=== PATIENT | female | born 1960 | race Asian ===

== ENCOUNTER 2016-07-22 05:56 | Day surgery (SDC) | payer BC ==
[2016-07-21 09:00] VITALS: BMI 34.0
[2016-07-22] VITALS (12 sets, daily range): BP systolic 96–127; BP diastolic 54–81; PULSE 62–74; RESP 12–23; Ht 160 cm; Wt 86.1 kg
[~2016-07-22] VITALS: Ht 160 cm; Wt 86.1 kg
[~2016-07-22 05:56] MED LIST: TYLENOL PO
[2016-07-22] MEDS ORDERED: POLYMYXIN/BACITRACIN 1L IRRIG ONE ×2 (06:46→06:48)
[2016-07-22] MEDS ORDERED: BUPIVACAINE 0.5% (SDV) 30 ML INJ ONE (06:48)
[2016-07-22] MEDS ORDERED: CEFAZOLIN 2 GM/50 ML (PMX) 50 ML IVPB SCH (07:00)
[2016-07-22] MEDS ORDERED: LIDOCAINE 2% (SDV) 5 ML INJ ONE (07:26)
[2016-07-22] MEDS ORDERED: PROPOFOL 20 ML ONE (07:26)
[2016-07-22] MEDS ORDERED: MIDAZOLAM 1 MG/ML 2 ML INJ ONE (07:27)
--- NOTE | 2016-07-22 07:43 | HPN ---
Date/Time of Note Date/Time of Note DATE: 07/22/16 TIME: 07:42 Interval H&P Admission Note Pt. seen H&P reviewed: No system changes FRANCOISE MARINELLI DPM Jul 22, 2016 07:43
[2016-07-22] MEDS ORDERED: FENTAnyl 50 MCG/ML VIAL ONE (07:52)
[2016-07-22] MEDS ORDERED: ONDANSETRON 4 MG INJ ONE (07:53)
[2016-07-22] MEDS ORDERED: METOCLOPRAMIDE 10 MG INJ ONE (07:53)
[2016-07-22] MEDS ORDERED: DEXAMETHASONE 4 MG/ML 1 ML INJ ONE (07:55)
[2016-07-22] MEDS ORDERED: LIDOCAINE 2% (MDV) 20 ML INJ ONE (08:02)
[2016-07-22] MEDS ORDERED: CLINDAMYCIN 900 MG/D5W (PMX) 50 ML IVPB ONE (08:08)
[2016-07-22] MEDS ORDERED: EPHEDrine SULFATE 50 MG/5 ML SYG ONE (08:26)
[2016-07-22] MEDS ORDERED: MEPERIDINE 25 MG INJ IV PRN (08:30)
[2016-07-22] MEDS ORDERED: PROCHLORPERAZINE 10 MG INJ IV PRN (08:30)
[2016-07-22] MEDS ORDERED: DIPHENHYDRAMINE 50 MG INJ IV PRN (08:30)
[2016-07-22] MEDS ORDERED: HYDROmorphONE (0.2 MG/ML) 10ML SYG IV PRN (08:30)
[2016-07-22] MEDS ORDERED: ONDANSETRON 4 MG INJ IV PRN (08:30)
[2016-07-22] MEDS ORDERED: OXYCODONE/ACETAMINOPHEN (5/325) TAB PO PRN (08:30)
[2016-07-22] MEDS ORDERED: FENTAnyl 50 MCG/ML VIAL IV PRN (08:30)
--- NOTE | 2016-07-22 10:33 | OPPN ---
Date/Time of Note Date/Time of Note DATE: 07/22/16 TIME: 10:31 Operative/Procedure Note Pre-Operative Diagnosis Left second rigid hammertoe Left second toe pain Post-Operative Diagnosis Left second rigid hammertoe Left second toe pain Procedure Surgical correction of left second rigid hammertoe deformity with K-wire fixation Surgeon: FRANCOISE MARINELLI DPM Estimated blood loss: minimal Drains: Not applicable Specimens Bone from left second toe Complications: None Anesthesia type: FRANCOISE GARDNER DPM Jul 22, 2016 10:32
[2016-07-22] MEDS ORDERED: HYDROCODONE/APAP (10/325) TAB PO PRN (13:00)
--- NOTE | 2016-07-23 13:52 | RADRPT ---
PROCEDURE: XR Foot. CLINICAL INDICATION: Postop TECHNIQUE: AP, lateral and oblique views of the left foot were obtained. COMPARISON: None. FINDINGS: There has been percutaneous pin fixation of the second proximal and distal interphalangeal joints. Hardware is intact. No fracture or dislocation is identified. Otherwise the osseous structures are intact. There are mild degenerative changes at the first metatarsophalangeal joint There are calca zenon enthesophytes. IMPRESSION: Status post percutaneous pin fixation of the second proximal and distal interphalangeal joints. Mild first metatarsophalangeal joint degenerative changes. Calcaneal enthesophytes. RPTAT: GG .Ney Carias MD, MD Date Time Electronically viewed and signed by .Ney Carias MD, on 07/23/2016 13:52 .O/
== END 2016-07-22 10:15 | disposition home or self-care (01) ==
LOC: SDS 05:56
PROVIDERS: ATTEND Podiatrist Foot & Ankle Surgery
DX: M20.42 Other hammer toe(s) (acquired), left foot (principal); E66.9 Obesity, unspecified; Z68.33 Body mass index [BMI] 33.0-33.9, adult
CPT/HCPCS: 28285; 73630; 84703; 88304; 88311; J1100; J2250; J2405; J2765; J3010; Z7512; Z7610